=== PATIENT | female | born 1965 | race Caucasian/White ===

== ENCOUNTER 2017-04-11 12:22 | Emergency (ER) | payer SELFPAY ==
[~2017-04-11 12:22] MED LIST: ALBU6.7H INH; CEFU1TAB20 PO; CITA-48 PO; CLON0.5T PO; CLON1 PO; CYCL5TAB PO; DEXT15TA PO; IBUP1TAB7 PO; IBUP800T23 PO; LORT5TAB PO; MINO50TA PO; VASE1025 PO
[2017-04-11] MEDS ORDERED: MEDR4PAK PO (12:42)
[2017-04-11] MEDS ORDERED: PERM5CRE TOPICAL (12:42)
[2017-04-11] MEDS ORDERED: methylPREDNISolone SOD SUCC 125 MG/2 ML VIAL IM ONE (12:45)
--- NOTE | 2017-04-11 12:46 | PD ---
HPI Chief Complaint: Skin Problem Time Seen by Provider: 12:25 Travel History International Travel<30 days: No Contact w/Intl Traveler<30days: No Traveled to known affect area: No History of Present Illness HPI 52-year-old female presents to emergency department complaining of a rash that started Sunday after work. 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 Patient states that the rash has spread over the arms, legs, and back and is pruritic. States she has tried Benadryl without relief. Patient denies fever, chills. Patient states that her boyfriend had a similar rash but has chronic dermatitis and attributes his rash to that. Patient denies recent travel, exposures, or unusual foods. Patient also denies any hotel stays. States that she did recently buy a used regulo bedroom set but does not believe this is the cause of her rash. States this is has never happened before [facility] Past Medical History Arthritis: Yes (rheumatoid) Blood Disorders: Yes (blood clotting disorder) Heart Rhythm Problems: Yes (pvc) High Cholesterol: Yes Diminished Hearing: No Hypertension: Yes Tetanus Vaccination: Unknown Influenza Vaccination: No ?: Not Past Surgical History Section: Yes (x3) Other Surgery: Yes (breast reduction, tna, hysteroscopy) Social History Alcohol Use: Yes (socially) Tobacco Use: Yes (1/2ppd) Substance Use: Yes (OCCASIONAL, past hx) Allergies-Medications (Allergen,Severity, Reaction): Coded Allergies: Sulfa (Sulfonamide Antibiotics) (Unverified Allergy, Unknown, 04/11/17) celecoxib (Unverified Allergy, Unknown, 04/11/17) Reported Meds & Prescriptions Reported Meds & Active Scripts Active Permethrin Topical 5% (Permethrin) 5% Cream 1 Applic TOPICAL ONCE Apply head to toe at night. Leave on for 8-12 hours before washing off Medrol Dosepak (Methylprednisolone) 4 Mg Dspk 4 Mg PO DIRECTED Per Pharmacist direction Review of Systems Except as stated in HPI: all other systems reviewed are Neg Physical Exam Narrative GENERAL: Well-developed well-nourished in mild distress SKIN: Focused skin assessment warm/dry. Right hand and fourth interdigital space yareli versus excoriation. Multiple, diffuse papules over her upper extremities and face. Scattered over back. No evidence of excoriations of back. No significant erythema or edema indicating cellulitis or lymphangitic Spread HEAD: Atraumatic. Normocephalic. EYES: Pupils equal and round. No scleral icterus. No injection or drainage. ENT: No nasal bleeding or discharge. Mucous membranes pink and moist. NECK: Trachea midline. No JVD. MUSCULOSKELETAL: No obvious deformities. No clubbing. No cyanosis. No edema. NEUROLOGICAL: Awake and alert. No obvious cranial nerve deficits. Motor grossly within normal limits. Normal speech. PSYCHIATRIC: Appropriate mood and affect; insight and judgment normal. Data Data Orders Orders Methylprednisolone So Succ Inj (Solumedr (04/11/17 12:45) Ed Discharge Order (04/11/17 12:46) MDM Medical Decision Making Medical Screen Exam Complete: Yes Emergency Medical Condition: Yes Differential Diagnosis Scabies versus bed bugs versus contact dermatitis versus allergic dermatitis Narrative Course 52-year-old female presents to emergency department complaining of a rash that started Sunday after work. 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 Patient states that the rash has spread over the arms, legs, and back and is pruritic. States she has tried Benadryl without relief. Patient denies fever, chills. Patient states that her boyfriend had a similar rash but has chronic dermatitis and attributes his rash to that. Patient denies recent travel, exposures, or unusual foods. Patient also denies any hotel stays. States that she did recently buy a used regulo bedroom set but does not believe this is the cause of her rash. States this is has never happened before. Vital signs stable Physical exam- scabies versus bed bugs Solu-Medrol administered for the pruritus and the emergency department Patient will be treated with permethrin and Medrol Dosepak for the itching Explained to patient that this is very contagious and to avoid close contact with others. Also advised to wash linen and other close in hot water and bleach. Advised patient to follow up with a primary care physician within 2-3 days. I recommended [facility] as she does not have a primary care physician or health insurance until May. Patient understands and will follow-up as requested. Diagnosis Primary Impression: Dermatitis Referrals: [facility] Additional Instructions: Take medication as prescribed. Wash all linen in hot water to avoid reinfection. Go to [facility] for permethrin cream and medrol dose pack. Avoid contact with others until cleared Scripts Permethrin Topical 5% (Permethrin Topical 5%) 5% Cream 1 APPLIC TOPICAL ONCE for Scabies, #1 TUBE 0 Refills Apply head to toe at night. Leave on for 8-12 hours before washing off Prov: Nathanael Landon MD 04/11/17 Methylprednisolone Dosepak (Medrol Dosepak) 4 Mg Dspk 4 MG PO DIRECTED, #1 DSPK 0 Refills Per Pharmacist direction Prov: Nathanael Landon MD 04/11/17 Disposition: 01 DISCHARGE HOME Condition: Stable Rachna Mcdowell Apr 11, 2017 12:46
== END 2017-04-11 13:12 | disposition home or self-care (01) ==
LOC: MERGE 12:22 → PHEFT 12:22
DX: L30.9 Dermatitis, unspecified (principal); M06.9 Rheumatoid arthritis, unspecified; E78.00 Pure hypercholesterolemia, unspecified; I10 Essential (primary) hypertension; Z72.0 Tobacco use
CPT/HCPCS: 96372; 99284; J2930

== ENCOUNTER 2017-08-22 20:47 | Emergency (ER) | payer SELFPAY ==
[~2017-08-22] VITALS: Ht 165.1 cm; Wt 92.5 kg
[~2017-08-22 20:47] MED LIST changes: -CEFU1TAB20 PO; -CYCL5TAB PO; -IBUP1TAB7 PO; +MEDR4PAK PO; +PERM5CRE TOPICAL
[2017-08-22 20:50] VITALS: BP 164/93; PULSE 97; RESP 18; TEMP 100.7; O2SAT 97
[2017-08-22] MEDS ORDERED: LISI20TA3 PO (21:07)
[2017-08-22] MEDS ORDERED: METF500T PO (21:07)
[2017-08-22] MEDS ORDERED: BUSP5TAB PO (21:07)
[2017-08-22] MEDS ORDERED: TRAM50TA PO (21:07)
[2017-08-22] MEDS ORDERED: TRIL150T PO (21:07)
[2017-08-22] MEDS ORDERED: CLINDAMYCIN 150 MG CAP PO ONE (21:15)
[2017-08-22] MEDS ORDERED: IBUPROFEN 600 MG TAB PO ONE (21:15)
[2017-08-22] MEDS ORDERED: CLIN150 PO (21:20)
--- NOTE | 2017-08-22 21:20 | PD ---
HPI Chief Complaint: Skin Problem Time Seen by Provider: 21:00 Travel History International Travel<30 days: No Contact w/Intl Traveler<30days: No Traveled to known affect area: No History of Present Illness HPI The patient is a 52-year-old female who presents to emergency department for an infection on the chin. The patient notes an area of swelling over the anterior aspect of the chin for the last 2 days with some erythema, tenderness, now notes that she is tender under the chin. She notes subjective fevers. She does have a history of diabetes, recently diagnosed, placed on metformin. The patient denies any drainage from the affected area. She cannot recall any trauma to the affected area denies plucking any hairs or shaving of the affected area. She denies any history of recurrent MRSA infections. Symptoms are moderate. She has been placing makeup of the affected area to reduce the amount of erythema. PFSH Past Medical History Hx Anticoagulant Therapy: Yes (BABY ASA) ADD: Yes Arthritis: Yes (rheumatoid) Asthma: Yes Blood Disorders: Yes (blood clotting disorder) Bipolar Disorder: Yes Anxiety: Yes Depression: Yes Heart Rhythm Problems: Yes (pvc) Cardiovascular Problems: Yes (HTN) High Cholesterol: Yes Diabetes: Yes Patient Takes Glucophage: Yes (08/22/17 1630) Diminished Hearing: No Endocrine: Yes ( INDUCED DIABETES) Gastrointestinal Disorders: Yes (? IBS IN PAST) Hypertension: Yes Musculoskeletal: Yes (L KNEE) Psychiatric: Yes Tetanus Vaccination: < 5 Years Influenza Vaccination: No ?: Not : 7 Para: 4 Miscarriage: 3 : 0 Past Surgical History Body Medical Devices: TITANIUM CLIP IN LEFT BREAST Section: Yes (x3) Gynecologic Surgery: Yes (NUMEROUS LAPROSCOPIC SURGERIES; CSECTIONS X 3) Neurologic Surgery: Yes (DECOMPRESSIVE LAMINECTOMY L4-5 AND S 1-2) Oral Surgery: Yes (T&A) Tonsillectomy: Yes Other Surgery: Yes (breast reduction, tna, hysteroscopy) Social History Alcohol Use: Yes (socially) Tobacco Use: Yes (05/10 ppd) Substance Use: No Allergies-Medications (Allergen,Severity, Reaction): Coded Allergies: Sulfa (Sulfonamide Antibiotics) (Unverified Allergy, Unknown, UNK, 08/22/17 ) celecoxib (Unverified Allergy, Unknown, 08/22/17) codeine (Unverified Adverse Reaction, Mild, NAUSEA, 4/18/18) morphine (Unverified Adverse Reaction, Mild, NAUSEA, 08/22/17) Reported Meds & Prescriptions Reported Meds & Active Scripts Active Reported Tramadol (Tramadol HCl) 50 Mg Tab 50 Mg PO Q8HR PRN Metformin (Metformin HCl) 500 Mg Tab 500 Mg PO BIDPC Trileptal (Oxcarbazepine) 150 Mg Tab 150 Mg PO BID Buspirone (Buspirone HCl) 5 Mg Tab 5 Mg PO BID Buspirone (Buspirone HCl) 5 Mg Tab 5 Mg PO BID Lisinopril-Hctz 20-25 Mg Tab 1 Tab PO DAILY Review of Systems Except as stated in HPI: all other systems reviewed are Neg General / Constitutional: Positive: Fever HENT: Positive: Other (As noted in the history of present illness) Gastrointestinal: No: Nausea, Vomiting Skin: Positive Other (As noted in the history of present illness) Endocrine: Positive: Other (Recent diagnosis of diabetes and placed on metformin) Physical Exam Narrative GENERAL: Awake, alert, pleasant 52-year-old female who appears her stated age and is in no acute respiratory distress. SKIN: Focused skin assessment warm/dry. HEAD: Atraumatic. Normocephalic. EYES: Pupils equal and round. No scleral icterus. No injection or drainage. ENT: No nasal bleeding or discharge. Mucous membranes pink and moist. The patient has an area of erythema and swelling over the chin/mentum with a small focal center but no visible drainage. NECK: Trachea midline. No JVD. MUSCULOSKELETAL: No obvious deformities. No clubbing. No cyanosis. No edema. NEUROLOGICAL: Awake and alert. No obvious cranial nerve deficits. Motor grossly within normal limits. Normal speech. PSYCHIATRIC: Appropriate mood and affect; insight and judgment normal. Data Data Last Documented VS Vital Signs Date Time Temp Pulse Resp B/P (MAP) Pulse Ox O2 Delivery O2 Flow Rate FiO2 08/22/17 20:50 100.7 97 18 164/93 (116) 97 Orders Orders Ibuprofen (Motrin) (08/22/17 21:15) Clindamycin (Cleocin) (08/22/17 21:15) Wound Culture And Gram Stain (08/22/17 21:14) MDM Medical Decision Making Medical Screen Exam Complete: Yes Emergency Medical Condition: Yes Medical Record Reviewed: Yes Differential Diagnosis Differential diagnosis includes abscess, infected wound, cellulitis, submandibular abscess, Addison angina, MRSA. Narrative Course A verbal consent for needle I&D was obtained. The chin was cleaned with a ChloraPrep, the focal area was opened with a 18-gauge needle expressing some purulent drainage which was cultured. Culture was sent to lab. The patient was administer clindamycin as she is allergic to Bactrim as well as ibuprofen 600 mg orally. She will be discharged home on clindamycin. She is advised to apply warm compresses over the affected area to help it drain. Follow-up with a primary physician. Diagnosis Primary Impression: Abscess of chin Patient Instructions: General Instructions Additional Instructions: Medications as directed. Follow-up with your primary physician. Apply warm compresses over the affected area. Return if symptoms worsen or progress. Med/Other Pt SpecificInfo: Prescription(s) given Scripts Clindamycin (Cleocin) 150 Mg Cap 150 MG PO Q6H for Infection for 10 Days, #40 CAP 0 Refills Prov: Gamal Elkins MD 08/22/17 Disposition: DISCHARGE HOME Condition: Stable Gamal Elkins MD Aug 22, 2017 21:20
[2017-08-22 21:24] VITALS: BP 152/90; PULSE 83; RESP 17; TEMP 98.5; O2SAT 96
== END 2017-08-22 21:31 | disposition home or self-care (01) ==
LOC: PHEFT 20:47
DX: L02.01 Cutaneous abscess of face (principal); A49.01 Methicillin susceptible Staphylococcus aureus infection, unspecified site; M06.9 Rheumatoid arthritis, unspecified; J45.909 Unspecified asthma, uncomplicated; F31.9 Bipolar disorder, unspecified; I10 Essential (primary) hypertension; E11.9 Type 2 diabetes mellitus without complications; E78.00 Pure hypercholesterolemia, unspecified; Z87.19 Personal history of other diseases of the digestive system
CPT/HCPCS: 10160; 86403; 87070; 87186; 87205